=== PATIENT | male | born 1955 | race Caucasian/White ===

== ENCOUNTER → 2018-03-01 13:46 | Outpatient (CLI) | payer OTHER, SELFPAY ==
--- NOTE | 2018-03-01 13:58 | DI.RAD.S_ITS ---
PROCEDURE: XR CHEST 2V INDICATIONS: CARDIAC ARRHYTHMIA TECHNIQUE: 2 views of the chest were acquired. COMPARISON: None. FINDINGS: Surgical changes and devices: None. Lungs and pleura: No pleural effusions or pneumothorax. Lungs are hyperinflated. No acute consolidation.. Mediastinum: Mediastinal contours are normal. Heart size is normal. Bones and chest wall: No suspicious bony abnormalities. Mild lateral curvature of the spine Soft tissues appear unremarkable. Mild anterior wedging of midthoracic vertebral bodies which is age indeterminate and could be physiologic. IMPRESSION: Hyperinflated appearance of the lungs suggestive of chronic obstructive physiology. No acute consolidation. Dictated by: Aman Pina M.D. on 03/01/2018 at 16:46 Approved by: Aman Pina M.D. on 03/01/2018 at 16:47
== END ==
PROVIDERS: Visit Provider Naturopath
DX: I49.9 Cardiac arrhythmia, unspecified (principal)
CPT/HCPCS: 71046; 93005

== ENCOUNTER → 2022-02-27 14:55 | Outpatient (CLI) | payer MEDICARE, OTHER, SELFPAY ==
[2022-02-27 19:27] LABS: Add Manual Diff / Slide Review NO; Basophils Absolute Auto 100 /uL (0-100); Basophils Percent Auto 1.1 % (0-2); Eosinophils Absolute Auto 0 /uL (0-450); Eosinophils Percent Auto 0.6 % (2-4); Hematocrit 42.2 % (41-53); Hemoglobin 14.6 g/dL (13.5-17.5); Lymphocytes Absolute Auto 1200 /uL (1100-4500); Lymphocytes Percent Auto 18.3 % (25-40); Mean Corpuscular HGB Conc 34.5 % (30-36); Mean Corpuscular Volume 89.9 fL (80-100); Monocytes Absolute Auto 500 /uL (0-900); Monocytes Percent Auto 7.1 % (3-14); Neutrophils Absolute Auto 4600 /uL (1500-7000); Neutrophils Percent Auto 72.9 % (50-75); Platelet Count 270 X10^3/uL (150-400); Red Cell Distribution Width 13.9 % (11.6-14.8); White Blood Cell Count 6.4 X10^3/uL (4.5-11.0)
[2022-02-27 19:37] LABS: Alanine Aminotransferase 27 IU/L (<50); Albumin 4.3 g/dL (3.5-5.0); Albumin Globulin Ratio 1.5 (1.0-2.8); Alkaline Phosphatase 95 U/L (38-126); Aspartate Aminotransferase 26 IU/L (17-59); BUN Creatinine Ratio 18.5 (6-22); Bilirubin Total 0.8 mg/dL (0.2-1.3); Blood Urea Nitrogen 15 mg/dL (9-20); Calcium 9.7 mg/dL (8.4-10.2); Carbon Dioxide 33 mmol/L (22-32); Chloride 97 mmol/L (98-107); Estimated Glomerular Filt Rate > 60 mL/min (>60); Globulin 2.9 g/dL (1.7-4.1); Glucose 102 mg/dL (80-110); HEMOLYSIS < 15 (0-50); Potassium 4.2 mmol/L (3.4-5.1); Sodium 139 mmol/L (137-145); Total Protein 7.2 g/dL (6.3-8.2)
[2022-02-27 20:42] LABS: Prothrombin Time 11.9 SECONDS (10.1-12.7)
== END ==
PROVIDERS: PCP Family Medicine; Visit Provider Orthopaedic Surgery
DX: Z01.818 Encounter for other preprocedural examination (principal); M25.551 Pain in right hip; M16.11 Unilateral primary osteoarthritis, right hip; M25.552 Pain in left hip
CPT/HCPCS: 80053; 85025; 85610